=== PATIENT | female | born 1975 | race African-American/Black ===

== ENCOUNTER 2017-12-04 10:24 | Emergency (ER) | payer OTHER ==
[~2017-12-04] VITALS: Ht 170.2 cm; Wt 94.3 kg
--- NOTE | ~2017-12-04 | EKG ---
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
[~2017-12-04 10:24] MED LIST: DENIES ANY MEDS; DIFLUCAN150 MG PO; TESSALON200 MG PO; ZPAK PO
[2017-12-04 10:59] LABS: ANION GAP 10 mmol/L (7-16); BUN 9 mg/dL (7-18); CALCIUM 9.6 mg/dL (8.5-10.1); CHLORIDE 107 mmol/L (98-107); CO2 22 mmol/L (21-32); CREATININE 0.6 mg/dL (0.6-1.0); GLUCOSE 116 mg/dL (74-106); SODIUM 139 mmol/L (136-145)
[2017-12-04 11:07] LABS: ALBUMIN 4.1 g/dL (3.4-5.0); SGOT 23 U/L (15-37); SGPT 25 U/L (30-65); TOTAL BILIRUBIN 0.4 mg/dL (<0.1-1.0); TROPONIN-I < 0.04 ng/mL (<0.06)
[2017-12-04 11:10] LABS: PROTIME 10.4 Seconds (9.3-11.4)
[2017-12-04 11:11] LABS: URINE BILIRUBIN NEGATIVE (Negative); URINE BLOOD NEGATIVE (Negative); URINE CLARITY CLEAR; URINE COLOR YELLOW; URINE GLUCOSE-RANDOM* NEGATIVE (Negative); URINE KETONES NEGATIVE (Negative); URINE LEUKOCYTES-REFLEX NEGATIVE (Negative); URINE NITRITE-REFLEX NEGATIVE (Negative); URINE PROTEIN (DIPSTICK) NEGATIVE (Negative); URINE SPECIFIC GRAVITY <= 1.005 (1.005-1.035); URINE UROBILINOGEN 0.2 E.U./dl (0.2-1.0)
[2017-12-04 11:32] LABS: ABSOLUTE NEUTROPHILS 6.3 thou/uL (1.4-8.2); BASOPHILS 0.4 % (0.0-2.0); EOSINOPHILS 1.4 % (0.0-3.0); HEMATOCRIT 36.4 % (37.0-47.0); HEMOGLOBIN 11.9 gm/dL (12.0-15.0); LYMPHOCYTES 14.8 % (24.0-44.0); MCH 29.1 pg (26.0-34.0); MCHC 32.7 g/dL (28.0-37.0); MCV 89.1 fL (80.0-100.0); MONOCYTES 6.9 % (1.0-8.0); PLATELET COUNT 336 thou/uL (150-400); POLYS 76.5 % (36.0-66.0); RBC 4.09 mil/uL (4.20-5.00); RDW 15.1 % (10.5-14.5); WBC 8.3 thou/uL (4.0-11.0)
[2017-12-04 12:57] VITALS: BP 124/80
== END 2017-12-04 12:58 | disposition home or self-care (01) ==
LOC: ER 10:24
PROVIDERS: Physician Assistant
DX: R07.9 Chest pain, unspecified (principal); R11.0 Nausea; M79.602 Pain in left arm; I10 Essential (primary) hypertension; R19.7 Diarrhea, unspecified